=== PATIENT | female | born 1955 | race Caucasian/White ===

== ENCOUNTER 2021-11-24 12:40 | Emergency (ER) | payer SELFPAY ==
[2021-11-24 13:53] VITALS: BP 171/94; PULSE 73; TEMP 98.4; BMI 26.2
== END 2021-11-24 17:08 | disposition home or self-care (01) ==
LOC: JER 12:40
DX: M79.605 Pain in left leg (principal)
CPT/HCPCS: 73523-TC-FY; 99283-25

== ENCOUNTER 2022-10-10 17:43 | Emergency (ER) | payer SELFPAY ==
[2022-10-10 17:59] VITALS: BP 177/85; PULSE 70; RESP 18; TEMP 98.4; BMI 34.2
[2022-10-10] MEDS ORDERED: ACETAMINOPHEN 500 MG TABLET (FP) PO ONE (19:10)
[2022-10-10] MEDS ORDERED: ACETAMINOPHEN 500 MG TABLET (FP) ONE (19:20)
== END 2022-10-10 20:59 | disposition home or self-care (01) ==
LOC: JER 17:43
DX: U07.1 COVID-19 (principal); K13.21 Leukoplakia of oral mucosa, including tongue; J01.10 Acute frontal sinusitis, unspecified
CPT/HCPCS: 99283-25